=== PATIENT | female | born 1985 | race Caucasian/White ===

== ENCOUNTER 2016-10-02 07:05 | Inpatient (IN) | payer BC ==
[2016-10-02] MEDS ORDERED: Nalbuphine 20 MG/1 ML Amp IVPUSH PRN (07:54)
[2016-10-02] MEDS ORDERED: Sodium Chloride 0.9% 10 ML Syringe FLUSH PRN (07:54)
[2016-10-02] MEDS ORDERED: Oxytocin/Lactated Ringers 10 UNIT/1,000 ML BAG IV SCH ×2 (08:00)
[2016-10-02] MEDS ORDERED: ePHEDrine 50 MG/ML SDV IVPUSH PRN (08:51)
[2016-10-02] MEDS ORDERED: Ondansetron 4 MG/2 ML SDV IVPUSH PRN (08:51)
[2016-10-02] MEDS ORDERED: fentaNYL 100 MCG/2 ML SDV EPIDUR PRN (08:51)
--- NOTE | 2016-10-02 08:59 | PCM.PREANE ---
Preanesthetic Assessment - Anesthesia/Transfusion/Family Hx Anesthesia History: Prior Anesthesia Without Reaction Transfusion History: No Prior Transfusion(s) - Physical Assessment O2 Sat by Pulse Oximetry: 98 Respiratory Rate: 16 Vital Signs: Last Vital Signs Temp 36.5 C 10/02/16 07:54 Pulse 78 10/02/16 07:54 Resp 16 10/02/16 07:54 BP 113/72 10/02/16 07:54 Pulse Ox 98 10/02/16 07:54 Height: 1.75 m Weight: 103.873 kg - Allergies Allergies/Adverse Reactions: Allergies Allergy/AdvReac Type Severity Reaction Status Date / Time No Known Allergies Allergy Verified 10/02/16 07:20 PreAnesthesia Questionnaire - Past Health History Medical/Surgical History: Denies Medical/Surgical History 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: , 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 Endocrine/Metabolic History: Reports: Obesity/BMI 30+ - SUBSTANCE USE Smoking Status *Q: Never Smoker Second Hand Smoke Exposure: No Recreational Drug Use History: No - HOME MEDS Home Medications: Home Meds Acetaminophen [Tylenol] 650 mg PO Q6H PRN #50 tablet 01/03/15 [Rx] Ibuprofen [Motrin] 200 - 800 mg PO Q6H PRN #50 tablet 01/03/15 [Rx] Lanolin [Lansinoh HPA] 1 applic TOP ASDIRECTED PRN #1 crm 01/03/15 [Rx] Vit with Ca/FA/Iron [ Plus Iron] 1 each PO DAILY tablet [Rx] - CURRENT (IN HOUSE) MEDS Current Meds: Current Medications Ephedrine Sulfate (Ephedrine Sulfate) 5 mg IVPUSH ASDIRECTED PRN PRN Reason: Hypotension Fentanyl (Sublimaze) 100 mcg EPIDUR Q3H PRN PRN Reason: Pain Fentanyl/Bupivacaine HCl (Fentanyl/Bupivacaine/Ns 2 Mcg-0.125% 100 Ml) 100 ml EPIDUR ASDIRECTED ESTIVEN Lactated Ringer's (Ringers, Lactated) 1,000 mls @ 100 mls/hr IV ASDIRECTED ESTIVEN Oxytocin/Lactated Ringer's (Pitocin In Lr 10 Units/1,000 Ml) 10 unit in 1,000 mls @ 500 mls/hr IV TITRATE ESTIVEN PRN Reason: Protocol Oxytocin/Lactated Ringer's (Pitocin In Lr 10 Units/1,000 Ml) 10 unit in 1,000 mls @ 12 mls/hr IV TITRATE ESTIVEN; 2 MUNITS/MIN PRN Reason: Protocol Nalbuphine HCl (Nubain) 10 mg IVPUSH Q2H PRN PRN Reason: Pain (moderate 4-6) Ondansetron HCl (Zofran) 4 mg IVPUSH ONETIME PRN PRN Reason: Nausea/Vomiting Sodium Chloride (Saline Flush) 10 ml FLUSH ASDIRECTED PRN PRN Reason: Keep Vein Open Preanesthetic Assessment - ANESTHESIA/TRANSFUSION/FAMILY HX Anesthesia/Transfusion History: No Prior Anesthesia, No Prior Transfusion(s) Family History of Anesthesia Reaction: No Intubation History: Unknown - REVIEW OF SYSTEMS Constitutional: Reports: no symptoms 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: Reports: no symptoms Respiratory: Reports: no symptoms, cough (with runny nose, and clearing up currently.) Cardiovascular: Reports: no symptoms GI: Reports: no symptoms (GERD) Other: Reports: Easy Bruising - PHYSICAL ASSESSMENT HR: 78 O2 Sat by Pulse Oximetry: 98 RR: 16 BP: 113/72 Temp: 36.5 C Vital Signs: Last Vital Signs Temp 36.5 C 10/02/16 07:54 Pulse 78 10/02/16 07:54 Resp 16 10/02/16 07:54 BP 113/72 10/02/16 07:54 Pulse Ox 98 10/02/16 07:54 Height: 1.75 m Weight: 103.873 kg NPO Status Date: 10/02/16 NPO Status Time: 10:00 ASA Class: 2 Mental Status: Alert & Oriented x3 Airway Class: Mallampati = 2 Dentition: Reports: Normal Dentition, [place](s), Caries Thyro-Mental Finger Breadths: 3 Mouth Opening Finger Breadths: 3 ROM/Head Extension: Full Respiratory Status: lungs clear to auscultation bilaterally Cardiovascular Status: regular rate & rhythm, normal S1, S2, no murmur, blood pressure WNL - ALLERGIES Allergies/Adverse Reactions: Allergies Allergy/AdvReac Type Severity Reaction Status Date / Time No Known Allergies Allergy Verified 10/02/16 07:20 - ANESTHESIA PLAN Preop Beta Brian: No Anesthesia Type Planned: Epidural - ACKNOWLEDGEMENTS Pt an Appropriate Candidate for the Planned Anesthesia: Yes Alternatives and Risks of Anesthesia Discussed w Pt/Guardian: Yes Pt/Guardian Understands and Agrees with Anesthesia Plan: Yes
[2016-10-02] MEDS ORDERED: Bupivacaine/fentaNYL/NS 100 ML Bag EPIDUR SCH (09:00)
[2016-10-02] MEDS: Lactated Ringers 1,000 ML IV SCH ×4 (10:51→15:58)
--- NOTE | 2016-10-02 18:55 | PCM.LDHP ---
L&D History of Present Illness - General Date of Service: 10/02/16 Admit Problem/Dx: Patient Status Order with Admit Dx/Problem 10/02/16 07:54 Patient Status [ADT] Routine Patient Status: Refer to Observation Admission Diagnosis/Problem: Reason for Admit: Induction Nurse Unit Type: Labor and Delivery Admitting Physician: Melissa Carrero Attending Physician: Melissa Carrero Medicare 96 Hour Certification Statement: This Patient is Admitted for Inpatient Services and is Medically Appropriate and Meets Medical Necessity for Inpatient Admission. I Reasonably Expect the Patient Will Require Inpatient Services That Span a Period of Time Over 2 Midnights. My Rationale for Medically Necessary Inpatient Care Will Be Found in the Admission History & Physical and Progress Notes. I Reasonably Expect the Patient to be Discharged or Transferred Within 96 Hours After Admission to This [facility] Hospital. Admission Diagnosis/Problem Admission Diagnosis/Problem Source of Information: Patient History Limitations: Reports: No limitations - History of Present Illness Introduction:: Here for induction of labor. PNC with myself without complication. 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 Endocrine/Metabolic History: Reports: Obesity/BMI 30+ Social & Family History - Family History Family Medical History: Noncontributory - Tobacco Use Smoking Status *Q: Never Smoker Second Hand Smoke Exposure: No - Caffeine Use Caffeine Use: Reports: Soda, Tea Caffeine Use Comment: Occasional - Recreational Drug Use Recreational Drug Use: No H&P Review of Systems - Review of Systems: Review Of Systems: See Below General: Reports: no symptoms HEENT: Reports: no symptoms Pulmonary: Reports: No Symptoms Cardiovascular: Reports: no symptoms Gastrointestinal: Reports: No symptoms Genitourinary: Reports: no symptoms Musculoskeletal: Reports: no symptoms Skin: Reports: no symptoms Psychiatric: Reports: no symptoms Neurological: Reports: No Symptoms Hematologic/Lymphatic: Reports: no symptoms Immunologic: Reports: no symptoms L&D Exam - Exam Exam: See Below - Vital Signs Vital Signs: Last Vital Signs Temp 36.5 C 10/02/16 09:02 Pulse 78 10/02/16 09:02 Resp 16 10/02/16 09:02 BP 113/72 10/02/16 09:02 Pulse Ox 98 10/02/16 09:02 Weight: 103.873 kg - OB Specific Contraction Intensity: Mild to Moderate Heart Rate (FHR) Variability: Moderate (6-25 bmp) Presentation: Vertex - Solis Score Solis Score Cervix Position: Midposition Solis Score Consistency: Medium Solis Score Effacement: 51-70% Solis Score Dilation: 1-2 cm Solis Score Infant's Station: -2 Solis Score Total: 6 - Exam General: alert, oriented HEENT: Conjunctiva clear Neck: supple Lungs: Clear to auscultation Cardiovascular: regular rate, regular rhythm Abdomen: normal bowel sounds Back Exam: normal inspection, full range of motion Extremities: normal inspection Skin: warm, dry, intact Neurological: cranial nerves intact, reflexes equal bilateral Psychiatric: alert, normal affect, normal mood - Patient Data Lab Results last 24 hrs: Laboratory Results - last 24 hr 10/02/16 Range/Units 08:38 WBC 12.82 H (3.98-10.04) K/mm3 RBC 4.09 (3.98-5.22) M/mm3 Hgb 12.2 (11.2-15.7) gm/L Hct 35.7 (34.1-44.9) % MCV 87.3 (79.4-94.8) fl MCH 29.8 (25.6-32.2) pg MCHC 34.2 (32.2-35.5) g/dl RDW Std Deviation 41.8 (36.4-46.3) fL Plt Count 246 (182-369) K/mm3 MPV 9.7 (9.4-12.3) fl Neut % (Auto) 71.1 (34.0-71.1) % Lymph % (Auto) 19.0 L (19.3-51.7) % [place] % (Auto) 7.6 (4.7-12.5) % Eos % (Auto) 1.7 (0.7-5.8) Baso % (Auto) 0.2 (0.1-1.2) % Neut # 9.12 H (1.56-6.13) K/mm3 Lymph # 2.44 (1.18-3.74) K/mm3 [place] # 0.97 H (0.24-0.36) K/mm3 Eos # 0.22 (0.04-0.36) K/mm3 Baso # 0.02 (0.01-0.08) K/mm3 Result Diagrams: 10/02/16 08:38 Problem List Initiated/Reviewed/Updated: Yes Orders Last 24hrs: Active Orders 24 hr Category Date Time Status Patient Status [ADT] Routine ADT 10/02/16 07:54 Active Activity as Tolerated [RC] PFP Care 10/02/16 07:54 Active Communication Order [RC] ASDIRECTED Care 10/02/16 07:54 Active Heart Tones [RC] ASDIRECTED Care 10/02/16 07:55 Active Notify Provider [RC] ASDIRECTED Care 10/02/16 08:49 Active Notify Provider [RC] PFP Care 10/02/16 07:54 Active Notify Provider [RC] PRN Care 10/02/16 07:54 Active Oxygen Therapy [RC] ASDIRECTED Care 10/02/16 08:49 Active Peripheral IV Care [RC] . DIRECTED Care 10/02/16 07:55 Active Pulse Oximetry [RC] ASDIRECTED Care 10/02/16 08:49 Active Vital Signs [RC] PER UNIT ROUTINE Care 10/02/16 07:54 Active Regular Diet [DIET] Diet 10/02/16 Dinner Active Bupivacaine/fentaNYL/NS [fentaNYL/Bupivacaine/NS 2 MCG- Med 10/02/16 09:00 Active 0.125% 100 ML] 100 ml EPIDUR ASDIRECTED Lactated Ringers [Ringers, Lactated] 1,000 ml Med 10/02/16 08:00 Active IV ASDIRECTED Nalbuphine [Nubain] Med 10/02/16 07:54 Active 10 mg IVPUSH Q2H PRN Ondansetron [Zofran] Med 10/02/16 08:51 Active 4 mg IVPUSH ONETIME PRN Oxytocin/Lactated Ringers [Pitocin in LR 10 Units/1,000 Med 10/02/16 08:00 Active ML] 10 unit in 1,000 ml IV TITRATE Oxytocin/Lactated Ringers [Pitocin in LR 10 Units/1,000 Med 10/02/16 08:00 Active ML] 10 unit in 1,000 ml IV TITRATE Sodium Chloride 0.9% [Saline Flush] Med 10/02/16 07:54 Active 10 ml FLUSH ASDIRECTED PRN ePHEDrine [ePHEDrine Sulfate] Med 10/02/16 08:51 Active 5 mg IVPUSH ASDIRECTED PRN fentaNYL [Sublimaze] Med 10/02/16 08:51 Active 100 mcg EPIDUR Q3H PRN Electronic Heart Tones Ext w TOCO [WOMSER] Oth 10/02/16 07:54 Ordered Routine Electronic Heart Tones Internal [WOMSER] Per Unit Oth 10/02/16 07:54 Ordered Routine Peripheral IV Insertion Adult [OM.PC] Routine Oth 10/02/16 07:54 Ordered Resuscitation Status Routine Resus Stat 10/02/16 07:54 Ordered Medication Orders Ephedrine Sulfate (Ephedrine Sulfate) 5 mg IVPUSH ASDIRECTED PRN PRN Reason: Hypotension Fentanyl (Sublimaze) 100 mcg EPIDUR Q3H PRN PRN Reason: Pain Last Admin: 10/02/16 13:42 Dose: 100 mcg Fentanyl/Bupivacaine HCl (Fentanyl/Bupivacaine/Ns 2 Mcg-0.125% 100 Ml) 100 ml EPIDUR ASDIRECTED [facility] Last Admin: 10/02/16 13:42 Dose: 100 ml Lactated Ringer's (Ringers, Lactated) 1,000 mls @ 100 mls/hr IV ASDIRECTED [facility] Last Admin: 10/02/16 15:58 Dose: 100 mls/hr Infusion: 10/02/16 15:58 Dose: 100 mls/hr Admin: 10/02/16 15:02 Dose: 100 mls/hr Infusion: 10/02/16 15:02 Dose: 100 mls/hr Admin: 10/02/16 13:45 Dose: 100 mls/hr Infusion: 10/02/16 13:45 Dose: 100 mls/hr Admin: 10/02/16 10:51 Dose: 100 mls/hr Oxytocin/Lactated Ringer's (Pitocin In Lr 10 Units/1,000 Ml) 10 unit in 1,000 mls @ 500 mls/hr IV TITRATE ESTIVEN PRN Reason: Protocol Oxytocin/Lactated Ringer's (Pitocin In Lr 10 Units/1,000 Ml) 10 unit in 1,000 mls @ 12 mls/hr IV TITRATE ESTIVEN; 2 MUNITS/MIN PRN Reason: Protocol Last Titration: 10/02/16 18:08 Dose: 4 munits/min, 24 mls/hr Titration: 10/02/16 17:52 Dose: 5 munits/min, 30 mls/hr Titration: 10/02/16 15:53 Dose: 4 munits/min, 24 mls/hr Titration: 10/02/16 13:29 Dose: 6 munits/min, 36 mls/hr Titration: 10/02/16 12:31 Dose: 8 munits/min, 48 mls/hr Titration: 10/02/16 12:00 Dose: 6 munits/min, 36 mls/hr Titration: 10/02/16 11:25 Dose: 4 munits/min, 24 mls/hr Admin: 10/02/16 10:51 Dose: 2 munits/min, 12 mls/hr Nalbuphine HCl (Nubain) 10 mg IVPUSH Q2H PRN PRN Reason: Pain (moderate 4-6) Ondansetron HCl (Zofran) 4 mg IVPUSH ONETIME PRN PRN Reason: Nausea/Vomiting Sodium Chloride (Saline Flush) 10 ml FLUSH ASDIRECTED PRN PRN Reason: Keep Vein Open Assessment/Plan Comment:: Term induction. Doing well. Pitocin and AROM when possible.
--- NOTE | 2016-10-02 18:57 | PCM.PNLD ---
Labor Progress Note - VS & Meds Vital Signs: Last Vital Signs Temp 36.5 C 10/02/16 09:02 Pulse 78 10/02/16 09:02 Resp 16 10/02/16 09:02 BP 113/72 10/02/16 09:02 Pulse Ox 98 10/02/16 09:02 Active Medications: Current Medications Ephedrine Sulfate (Ephedrine Sulfate) 5 mg IVPUSH ASDIRECTED PRN PRN Reason: Hypotension Fentanyl (Sublimaze) 100 mcg EPIDUR Q3H PRN PRN Reason: Pain Last Admin: 10/02/16 13:42 Dose: 100 mcg Fentanyl/Bupivacaine HCl (Fentanyl/Bupivacaine/Ns 2 Mcg-0.125% 100 Ml) 100 ml EPIDUR ASDIRECTED ESTIVEN Last Admin: 10/02/16 13:42 Dose: 100 ml Lactated Ringer's (Ringers, Lactated) 1,000 mls @ 100 mls/hr IV ASDIRECTED ESTIVEN Last Admin: 10/02/16 15:58 Dose: 100 mls/hr Oxytocin/Lactated Ringer's (Pitocin In Lr 10 Units/1,000 Ml) 10 unit in 1,000 mls @ 500 mls/hr IV TITRATE ESTIVEN PRN Reason: Protocol Oxytocin/Lactated Ringer's (Pitocin In Lr 10 Units/1,000 Ml) 10 unit in 1,000 mls @ 12 mls/hr IV TITRATE ESTIVEN; 2 MUNITS/MIN PRN Reason: Protocol Last Titration: 10/02/16 18:08 Dose: 4 munits/min, 24 mls/hr Nalbuphine HCl (Nubain) 10 mg IVPUSH Q2H PRN PRN Reason: Pain (moderate 4-6) Ondansetron HCl (Zofran) 4 mg IVPUSH ONETIME PRN PRN Reason: Nausea/Vomiting Sodium Chloride (Saline Flush) 10 ml FLUSH ASDIRECTED PRN PRN Reason: Keep Vein Open - Uterine Contractions Contraction Intensity: Mild to Moderate - Monitoring Heart Rate (FHR) Variability: Moderate (6-25 bmp) Strip Review: Category I - Vaginal Exam Station: -2 Cervical Position: Midposition - Labor Progress (Free Text) Labor Progress: AROM clear fluid.
[2016-10-02] MEDS ORDERED: Ibuprofen 600 MG Tab PO PRN (19:17)
[2016-10-02] MEDS ORDERED: Bupivacaine 0.25% 10 ML SDV ONE (22:22)
[2016-10-03] MEDS ORDERED: Ibuprofen 600 MG Tab PO PRN (06:45)
--- NOTE | 2016-10-03 06:46 | PCM.DCSUM1 ---
Discharge Summary - Hospital Course Brief History: Admitted for induction of labor, - Discharge Data Discharge Date: 10/03/16 Discharge Disposition: Home, Self-Care 01 Condition: Good - Patient Instructions Diet: Usual Diet as Tolerated Activity: No Strenuous Activities Driving: May Drive Today Showering/Bathing: May Shower Notify Provider of: Fever, Increased Pain, Swelling and Redness, Drainage, Nausea and/or Vomiting - Discharge Plan Home Medications: Home Meds Vit with Ca/FA/Iron [ Plus Iron] 1 each PO DAILY tablet [Rx] - Discharge Summary/Plan Comment DC Time >30 min.: No - General Info Date of Service: 10/03/16 Functional Status: Reports: pain controlled - Review of Systems General: Reports: No Symptoms HEENT: Reports: no symptoms Pulmonary: Reports: no symptoms Cardiovascular: Reports: No Symptoms Gastrointestinal: Reports: No symptoms Genitourinary: Reports: no symptoms Musculoskeletal: Reports: no symptoms Skin: Reports: no symptoms Neurological: Reports: No Symptoms Psychiatric: Reports: no symptoms - Patient Data Vitals - Most Recent: Last Vital Signs Temp 37.2 C 10/03/16 05:01 Pulse 60 10/03/16 05:01 Resp 15 10/03/16 05:01 BP 106/52 L 10/03/16 05:01 Pulse Ox 99 10/03/16 05:01 Weight - Most Recent: 103.873 kg I&O - Last 24 hours: Intake & Output 10/02/16 10/02/16 10/03/16 14:59 22:59 06:59 Intake Total 5380 Balance 5380 Lab Results - Last 24 hrs: Laboratory Results - last 24 hr 10/02/16 Range/Units 08:38 WBC 12.82 H (3.98-10.04) K/mm3 RBC 4.09 (3.98-5.22) M/mm3 Hgb 12.2 (11.2-15.7) gm/L Hct 35.7 (34.1-44.9) % MCV 87.3 (79.4-94.8) fl MCH 29.8 (25.6-32.2) pg MCHC 34.2 (32.2-35.5) g/dl RDW Std Deviation 41.8 (36.4-46.3) fL Plt Count 246 (182-369) K/mm3 MPV 9.7 (9.4-12.3) fl Neut % (Auto) 71.1 (34.0-71.1) % Lymph % (Auto) 19.0 L (19.3-51.7) % [place] % (Auto) 7.6 (4.7-12.5) % Eos % (Auto) 1.7 (0.7-5.8) Baso % (Auto) 0.2 (0.1-1.2) % Neut # 9.12 H (1.56-6.13) K/mm3 Lymph # 2.44 (1.18-3.74) K/mm3 [place] # 0.97 H (0.24-0.36) K/mm3 Eos # 0.22 (0.04-0.36) K/mm3 Baso # 0.02 (0.01-0.08) K/mm3 Med Orders - Current: Current Medications Ephedrine Sulfate (Ephedrine Sulfate) 5 mg IVPUSH ASDIRECTED PRN PRN Reason: Hypotension Fentanyl (Sublimaze) 100 mcg EPIDUR Q3H PRN PRN Reason: Pain Last Admin: 10/02/16 13:42 Dose: 100 mcg Fentanyl/Bupivacaine HCl (Fentanyl/Bupivacaine/Ns 2 Mcg-0.125% 100 Ml) 100 ml EPIDUR ASDIRECTED ESTIVEN Last Admin: 10/02/16 13:42 Dose: 100 ml Lactated Ringer's (Ringers, Lactated) 1,000 mls @ 100 mls/hr IV ASDIRECTED ESTIVEN Last Admin: 10/02/16 15:58 Dose: 100 mls/hr Oxytocin/Lactated Ringer's (Pitocin In Lr 10 Units/1,000 Ml) 10 unit in 1,000 mls @ 500 mls/hr IV TITRATE ESTIVEN PRN Reason: Protocol Oxytocin/Lactated Ringer's (Pitocin In Lr 10 Units/1,000 Ml) 10 unit in 1,000 mls @ 12 mls/hr IV TITRATE ESTIVEN; 2 MUNITS/MIN PRN Reason: Protocol Last Titration: 10/02/16 18:30 Dose: 0 munits/min, 0 mls/hr Ibuprofen (Motrin) 600 mg PO Q6H PRN PRN Reason: Pain Last Admin: 10/03/16 02:28 Dose: 600 mg Nalbuphine HCl (Nubain) 10 mg IVPUSH Q2H PRN PRN Reason: Pain (moderate 4-6) Ondansetron HCl (Zofran) 4 mg IVPUSH ONETIME PRN PRN Reason: Nausea/Vomiting Sodium Chloride (Saline Flush) 10 ml FLUSH ASDIRECTED PRN PRN Reason: Keep Vein Open - Exam General: Reports: alert, oriented HEENT: Reports: Pupils equal, Pupils reactive, EOMI, Mucous membr. moist/pink Neck: Reports: supple Lungs: Reports: Clear to auscultation, Normal respiratory effort Cardiovascular: Reports: Regular Rate, Regular Rhythm Abdomen: Reports: bowel sounds present, soft, no tenderness, no distension (Female) Exam: Normal external exam, Normal speculum exam, Normal bimanual exam Rectal (Female) Exam: Normal Exam, Normal rectal tone Back Exam: Reports: normal inspection, full range of motion Extremities: Reports: no edema, normal pulses Skin: Reports: warm, dry, intact Wound/Incisions: Reports: healing well Neurological: Reports: no new focal deficit Psy/Mental Status: Reports: alert, normal affect, normal mood *Q Meaningful Use (DIS) - VTE *Q VTE Criteria *Q: - Stroke *Q Stroke Criteria *Q: - AMI *Q AMI Criteria *Q:
--- NOTE | 2016-10-03 09:11 | PCM48HPAN ---
Post Anesthesia Note - EVALUATION WITHIN 48HRS OF ANESTHETIC Vital Signs in Normal Range: Yes Patient Participated in Evaluation: Yes Respiratory Function Stable: Yes Airway Patent: Yes Cardiovascular Function Stable: Yes Hydration Status Stable: Yes Pain Control Satisfactory: Yes Nausea and Vomiting Control Satisfactory: Yes Mental Status Recovered: Yes - COMMENTS/OBSERVATIONS Free Text/Narrative:: Pt and baby are doing well. Epidural worked well and is completely resolved. minor soreness at epidural site. no fever, chills, nausea,vomiting, or headache. ambulating, using restroom, and taking p.o. without problem.
[2016-10-03 10:36] VITALS: BP 112/66
== END 2016-10-03 18:45 | disposition home or self-care (01) | DRG 560 ==
LOC: JD.OB 07:05 → OBSVTOIN 18:35
PROVIDERS: ADMIT Obstetrics & Gynecology; ATTEND Obstetrics & Gynecology
PROC: 10E0XZZ Delivery of Products of Conception, External Approach (ICD-10-PCS; principal; 2016-10-02)
PROC: 3E033VJ Introduction of Other Hormone into Peripheral Vein, Percutaneous Approach (ICD-10-PCS; 2016-10-02)
PROC: 10907ZC Drainage of Amniotic Fluid, Therapeutic from Products of Conception, Via Natural or Artificial Opening (ICD-10-PCS; 2016-10-02)
PROC: 00HU33Z Insertion of Infusion Device into Spinal Canal, Percutaneous Approach (ICD-10-PCS; 2016-10-02)
PROC: 3E0R3CZ (ICD-10-PCS; 2016-10-02)
DX: O99.214 Obesity complicating childbirth (principal); E66.9 Obesity, unspecified; Z68.30 Body mass index [BMI] 30.0-30.9, adult; O69.81X0 Labor and delivery complicated by cord around neck, without compression, not applicable or unspecified; Z3A.40 40 weeks gestation of pregnancy; Z37.0 Single live birth
CPT/HCPCS: 36415; 85025; A9270-GY; J2590; J3010; J7120

== ENCOUNTER 2016-10-24 13:44 | Emergency (ER) | payer BC ==
[2016-10-24 14:01] VITALS: BP 129/76
--- NOTE | 2016-10-24 14:29 | EDM.PDOC ---
ED HPI GENERAL MEDICAL PROBLEM - General Chief Complaint: General Stated Complaint: RIB PAIN Time Seen by Provider: 10/24/16 14:19 Source of Information: Reports: Patient History Limitations: Reports: No limitations - History of Present Illness INITIAL COMMENTS - FREE TEXT/NARRATIVE: Patient presents for evaluation treatment of right-sided chest pain. Patient reports the chest pain began around 1300 today. She states it is located under her right breast. She states she tought the pain was do to her clothing or bra. she stripped off her clothing but the pain did not improve. She states that she did feel short of breath and felt she had labored breathing with the pain. She states it is worse with sitting. She has been having difficulty finding a comfortable position. She reports that the pain is constant and rates it as a 6/ 10. She reports pain with any movement to her ribs in breathing. States it's worse with laying on her back. Patient reports associated symptoms of nausea and chills. She denies any fevers, cough, vomiting, diaphoresis. Has not taken any medication for the pain. Patient gave to a healthy baby girl on 10-02-16. This was a spontaneous vaginal delivery. She has been breast-feeding. She's currently only on a vitamin. She is not on control. She denies any recent travel. Patient reports that she has family history of hypertension and heart attacks on her leon;s side. No family history of blood clotting disorders that she is aware of. 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 Denies: fever Respiratory: Reports: Shortness of Breath, Pleuritic Chest Pain Cardiovascular: Reports: Chest pain (right ) GI/Abdominal: Reports: Nausea. Denies: Abdominal pain, Vomiting ED EXAM, GENERAL - Physical Exam Exam: See Below Exam Limited By: No limitations General Appearance: alert, WD/WN, mild distress, obese Ears: normal external exam Nose: normal inspection Throat/Mouth: Normal inspection, Normal oropharynx, Normal voice, No airway compromise Respiratory/Chest: no respiratory distress, lungs clear, normal breath sounds Cardiovascular: normal peripheral pulses, regular rate, rhythm, no murmur GI/Abdominal: soft, non tender Neurological: alert, oriented, normal cognition Psychiatric: normal affect, normal mood Skin Exam: Warm, Dry, Normal color EKG INTERPRETATION EKG Date: 10/24/16 Time: 14:30 Rhythm: NSR Rate (beats/min): 61 [place]: normal P-wave: present QRS: normal ST-T: normal QT: normal Comparison: NA - no prior EKG EKG Interpretation Comments: NSR at 61 bpm. Normal ECG. Reviewed by myself and Dr. Zuniga. Course - Vital Signs Last Recorded V/S: Last Vital Signs Temp 36.5 C 10/24/16 13:52 Pulse 60 10/24/16 13:52 Resp 28 H 10/24/16 13:52 BP 129/76 10/24/16 13:52 Pulse Ox 100 10/24/16 13:52 - Orders/Labs/Meds Orders: Active Orders 24 hr Category Date Time Status Cardiac Monitoring [RC] . DIRECTED Care 10/24/16 14:25 Active EKG Documentation Completion [RC] STAT Care 10/24/16 14:25 Active Peripheral IV Care [RC] . DIRECTED Care 10/24/16 14:28 Active Chest 2V [CR] Stat Exams 10/24/16 14:25 Taken Chest PE [Ang Chest] [CT] Stat Exams 10/24/16 15:25 Taken Peripheral IV Insertion Adult [OM.PC] Routine Oth 10/24/16 14:28 Ordered Labs: Laboratory Tests 10/24/16 10/24/16 10/24/16 Range/Units 14:44 14:44 14:44 WBC 8.63 (3.98-10.04) K/mm3 RBC 4.88 (3.98-5.22) M/mm3 Hgb 14.3 (11.2-15.7) gm/L Hct 41.3 (34.1-44.9) % MCV 84.6 (79.4-94.8) fl MCH 29.3 (25.6-32.2) pg MCHC 34.6 (32.2-35.5) g/dl RDW Std Deviation 37.2 (36.4-46.3) fL Plt Count 329 (182-369) K/mm3 MPV 9.5 (9.4-12.3) fl Neut % (Auto) 68.6 (34.0-71.1) % Lymph % (Auto) 22.7 (19.3-51.7) % [place] % (Auto) 6.6 (4.7-12.5) % Eos % (Auto) 2.0 (0.7-5.8) Baso % (Auto) 0.1 (0.1-1.2) % Neut # (Auto) 5.92 (1.56-6.13) K/mm3 Lymph # (Auto) 1.96 (1.18-3.74) K/mm3 [place] # (Auto) 0.57 H (0.24-0.36) K/mm3 Eos # (Auto) 0.17 (0.04-0.36) K/mm3 Baso # (Auto) 0.01 (0.01-0.08) K/mm3 D-Dimer, Quantitative 1.20 H (0.19-0.59) mg/L Sodium 142 (136-145) mEq/L Potassium 3.3 L (3.5-5.1) mEq/L Chloride 106 (98-107) mEq/L Carbon Dioxide 25 (21-32) mEq/L Anion Gap 14.3 (5-15) BUN 11 (7-18) mg/dL Creatinine 0.9 (0.55-1.02) mg/dL Est Cr Clr Drug Dosing 94.65 mL/min Estimated GFR (MDRD) > 60 (>60) mL/min BUN/Creatinine Ratio 12.2 L (14-18) Glucose 106 (74-106) mg/dL Calcium 9.0 (8.5-10.1) mg/dL Total Bilirubin 0.9 (0.2-1.0) mg/dL AST 152 H (15-37) U/L ALT 119 H (14-59) U/L Alkaline Phosphatase 95 (46-116) U/L Troponin I < 0.017 (0.00-0.056) ng/mL C-Reactive Protein < 0.2 (<1.0) mg/dL Total Protein 6.8 (6.4-8.2) g/dl Albumin 3.6 (3.4-5.0) g/dl Globulin 3.2 gm/dL Albumin/Globulin Ratio 1.1 (1-2) Meds: Medications Discontinued Medications Generic Name Dose Route Start Last Admin Trade Name Freq PRN Reason Stop Dose Admin Sodium Chloride 100 mls @ 60 mls/hr 10/24/16 15:45 10/24/16 15:45 Normal Saline IV 60 mls/hr ASDIRECTED ESTIVEN Administration Iopamidol 50 ml 10/24/16 15:31 10/24/16 15:45 Isovue-370 (76%) IVPUSH 10/24/16 15:32 50 ml ONETIME ONE Administration Iopamidol 100 ml 10/24/16 15:31 10/24/16 15:45 Isovue-370 (76%) IVPUSH 10/24/16 15:32 100 ml ONETIME ONE Administration Ketorolac Tromethamine 30 mg 10/24/16 16:46 10/24/16 16:50 Toradol IVPUSH 10/24/16 16:47 30 mg ONETIME ONE Administration Sodium Chloride 10 ml 10/24/16 14:28 10/24/16 16:50 Saline Flush FLUSH 10 ml ASDIRECTED PRN Administration Keep Vein Open Sodium Chloride 10 ml 10/24/16 15:31 10/24/16 15:45 Saline Flush FLUSH 10/24/16 15:32 10 ml ONETIME ONE Administration - Radiology Interpretation Free Text/Narrative:: chest 2 view shows no acute intrathroacic process. CT PE study impression per Vrad: No CT sign fo acute PE. CT Results Date: 10/24/16 - Re-Assessments/Exams Free Text/Narrative Re-Assessment/Exam: 10/24/16 14:40 Offered medication for pain and nausea, patient declnied. 04/12/17 15:29 WBC is 8.63, hgb is 14.3 and pls ate 329 d dimer elevated at 1.20. Ct PE study ordered. trop normal at <0.017 Offered medication for pain, patient declines. 10/24/16 17:11 Remainder of labs include: sodium os 142, potassium of 3.3 and chloride of 106. Creatinine is 0.9. Glucose is 106 AST is 152, ALT is 119 , t. bili is0.9 CRP is <0.2 Reviewed the labs, ekg and ct with the patient. Likely etiology is musculoskeletal pain, could possibly be predromal shingles or gallbladder. Patient reports she had shahid and an egg salad sandwich for lunch but states she had the same lunch yesterday without any problems. I will have her follow-up in clinic for further evaluation. Discharge instructions as documented. Departure - Departure Time of Disposition: 17:20 Disposition: Home, Self-Care 01 Condition: fair Clinical Impression: Chest wall pain Instructions: Chest Wall Pain, [id number] Referrals: PCP,Chris [Primary Care Provider] - Suzi Pierre PA [Physician Regenerator Operator] - Forms: ED Department Discharge Additional Instructions: OTC ibuprofen or tylenol as needed for pain relief. Avoid fatty foods. Follow-up with family medicine the end or this week or early next week. Recommend Dr. Velasquez or Suzi Pierre, call [phone] to schedule with one of them. She is located at the [facility]. Please return to the ER should your symptoms change or worsen. - My Orders Last 24 Hours: My Active Orders 10/24/16 14:25 Cardiac Monitoring [RC] . DIRECTED EKG Documentation Completion [RC] STAT Chest 2V [CR] Stat 10/24/16 14:28 Peripheral IV Care [RC] . DIRECTED Peripheral IV Insertion Adult [OM.PC] Routine 10/24/16 15:25 Chest PE [Ang Chest] [CT] Stat - Assessment/Plan Last 24 Hours: My Active Orders 10/24/16 14:25 Cardiac Monitoring [RC] . DIRECTED EKG Documentation Completion [RC] STAT Chest 2V [CR] Stat 10/24/16 14:28 Peripheral IV Care [RC] . DIRECTED Peripheral IV Insertion Adult [OM.PC] Routine 10/24/16 15:25 Chest PE [Ang Chest] [CT] Stat
[2016-10-24] MEDS: Sodium Chloride 0.9% 10 ML Syringe FLUSH PRN ×2 (15:28→16:50)
[2016-10-24] MEDS ORDERED: Sodium Chloride 0.9% 10 ML Syringe FLUSH ONE (15:31)
[2016-10-24] MEDS ORDERED: Iopamidol 755 Mg/ML 100 ML Bottle IVPUSH ONE (15:31)
[2016-10-24] MEDS ORDERED: Iopamidol 755 MG/ML 50 ML Bottle IVPUSH ONE (15:31)
[2016-10-24] MEDS ORDERED: Sodium Chloride 0.9% 100 ML IV SCH (15:45)
[2016-10-24] MEDS ORDERED: Ketorolac 30 MG/ML SDV IVPUSH ONE (16:46)
--- NOTE | 2016-10-25 11:45 | CT ---
CT chest Technique: Multiple axial sections were obtained from above the lung apices inferiorly through the lung bases. Intravenous contrast was utilized. Study has been performed as a pulmonary angiogram protocol. Findings: Pulmonary arteries are well-opacified. No filling defects are seen to indicate pulmonary embolism. Mediastinum and hilar region show no adenopathy or mass. No pericardial thickening is seen. Small portion of the visualized upper abdominal structures are within normal limits. Lungs are clear. No pleural effusions or pneumothorax is seen. Bone window settings were reviewed which appear within normal limits for the patient's age. Impression: 1. No findings of pulmonary embolism. 2. Other portions of the CT study of the chest appears unremarkable. Agree with preliminary report issued by [facility] (preliminary report dictated on 10/24/16, 5:38 PM Central Time) Diagnostic code #1
--- NOTE | 2016-10-25 11:46 | CR ---
Chest: Two views of the chest were obtained. Comparison: No previous chest x-ray. Heart size and mediastinum are normal. Lungs are clear. No pneumothorax is seen. Bony structures are grossly intact. Impression: 1. No acute intrathoracic process is seen. Diagnostic code #1
== END 2016-10-24 17:40 | disposition home or self-care (01) ==
LOC: JD.ED 13:44
DX: R07.89 Other chest pain (principal); E66.9 Obesity, unspecified; Z68.30 Body mass index [BMI] 30.0-30.9, adult
CPT/HCPCS: 36415; 71020; 71275; 80053; 84484; 85025; 85379; 86140; 93005; 96374; 99284; J1885; J7030; J7050; Q9967

== ENCOUNTER 2017-11-21 17:27 | Emergency (ER) | payer BC ==
[2017-11-21 17:39] VITALS: BP 121/73
--- NOTE | 2017-11-21 18:36 | EDM.PDOC ---
ED HPI GENERAL MEDICAL PROBLEM - General Chief Complaint: Lower Extremity Injury/Pain Stated Complaint: PAIN IN RIGHT LEG Time Seen by Provider: 11/21/17 18:08 Source of Information: Reports: Patient History Limitations: Reports: No Limitations - History of Present Illness INITIAL COMMENTS - FREE TEXT/NARRATIVE: The patient is a 32-year-old female , at 11 weeks, presents with right lower extremity pain. She states that she has a few issues going on with the leg. First of all, she has a rash above the right knee that started a few days ago. It is red and a bit burning in nature. It started a few days ago. She hasn' t had any vesicular or crusted lesions. She states that it does feel somewhat similar to when she's had zoster infections before. She states that she's had somewhat frequent zoster infections during times of stress or . Additionally, she has an area on her right lateral calf where there is some pain and swelling and redness. She states that she first noticed it today. States that it feels warm. No provoking factor. No history of similar symptoms previously. She doesn't have any actual calf pain or leg swelling. Additionally , she has an area of her right ankle that feels sore. States that this is worse with movement. States that she notices it when she takes the first few steps and the pain goes away. The pain is located in the right lower lateral ankle area. She does not recall an injury. She is somewhat active taking care of 3 kids at home. Pain is been present for about 3 days. No additional joint pain. She hasn't noticed any redness or swelling to the area. Pain is mild to moderate , and does resolve with rest. No fever or recent illness. No cough or shortness of breath. No abdominal pain or vomiting. 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 Endocrine/Metabolic History: Reports: Obesity/BMI 30+ Social & Family History - Family History Family Medical History: Noncontributory - Tobacco Use Smoking Status *Q: Never Smoker - Caffeine Use Caffeine Use: Reports: Coffee Caffeine Use Comment: Occasional - Recreational Drug Use Recreational Drug Use: No Review of Systems - Review of Systems Review Of Systems: See Below Constitutional: Denies: Fever Eyes: Reports: No Symptoms Ears: Reports: No Symptoms Nose: Reports: No Symptoms Mouth/Throat: Reports: No Symptoms Respiratory: Denies: Shortness of Breath, Cough Cardiovascular: Denies: Chest Pain GI/Abdominal: Denies: Abdominal Pain Genitourinary: Reports: No Symptoms Musculoskeletal: Reports: Leg Pain, Joint Pain Skin: Reports: Rash, Erythema Neurological: Reports: No Symptoms Psychiatric: Reports: No Symptoms ED EXAM, GENERAL - Physical Exam Exam: See Below Exam Limited By: No Limitations General Appearance: Alert, WD/WN, No Apparent Distress Eye Exam: Bilateral Eye: Normal Inspection Ears: Normal External Exam Nose: Normal Inspection Throat/Mouth: Normal Inspection, Normal Oropharynx, Normal Voice, No Airway Compromise Head: Atraumatic, Normocephalic Neck: Normal Inspection, Supple Respiratory/Chest: No Respiratory Distress, Lungs Clear, Normal Breath Sounds, No Accessory Muscle Use Cardiovascular: Normal Peripheral Pulses, Regular Rate, Rhythm, No Edema, No Murmur GI/Abdominal: Soft, Non-Tender, No Distention Extremities: Other (Right lower extremity: Small patches erythema localized above the right knee, size is approximately 3 x 3 cm, slightly warm, one isolated crusted lesion, no vesicular lesions, no discharge. No knee swelling or tenderness, full range of motion in the knee. Right lateral calf has a larger patch of erythema, approximately 6 cm x 3 cm with an elliptical shape, confluent, hot to the touch, blanching, no lesions or exudate, extensive varicose veins on the right lower extremity, there is an underlying varicose vein that is mildly tender. No palpable cord. No swelling of the right lower extremity, no calf tenderness right ankle is normal in appearance, no swelling, no effusion, no bruising or erythema, tenderness is localized to the distal aspect of the right malleolus, full range of motion, no foot abnormality.) Neurological: Alert, Oriented, Normal Cognition, No Motor/Sensory Deficits Psychiatric: Normal Affect, Normal Mood Skin Exam: Warm, Dry, Intact. No: Pallor Course - Vital Signs Last Recorded V/S: Last Vital Signs Temp 36.3 C 11/21/17 17:35 Pulse 78 11/21/17 17:35 Resp 16 11/21/17 17:35 BP 121/73 11/21/17 17:35 Pulse Ox 100 11/21/17 17:35 - Re-Assessments/Exams Free Text/Narrative Re-Assessment/Exam: 11/22/17 09:13 Patient has 2 patches of erythema on the right lower extremity. The proximal patch above the knee looks like it could be consistent with a zoster infection though it only has one crusted lesion at this time. Patient has had this area of erythema for several days, I don't think that there is value in treating this with acyclovir at this time given duration of symptoms. Secondly, she has new patch of erythema on the right lateral leg that is confluent and hot to the touch and appears consistent with cellulitis. She does have a varicose pain underneath which is tender, superficial phlebitis as possible, though it is not clear if the tenderness of this pain is due to overlying skin infection or if the vein itself is tender. Regardless, I do think it would be prudent to treat with a course of oral antibiotics. Also discussed local care with heat and elevation. Patient also has transient ankle pain when she starts to bear weight that resolves with movement and also resolves with rest. The ankle appears uninjured. There is no effusion or erythema. Suggested that she treat this conservatively with rest, ice, elevation, and reevaluation as needed. Departure - Departure Time of Disposition: 18:32 Disposition: Home, Self-Care 01 Clinical Impression: Superficial thrombophlebitis during in first trimester Cellulitis Qualifiers: Site of cellulitis: extremity Site of cellulitis of extremity: lower extremity Laterality: right Qualified Code(s): L03.115 - Cellulitis of right lower limb Ankle pain, right Qualifiers: Chronicity: acute Qualified Code(s): M25.571 - Pain in right ankle and joints of right foot - Discharge Information Prescriptions: Cephalexin 500 mg PO QID #28 capsule Instructions: Cellulitis, Adult Referrals: PCP,None [Primary Care Provider] - Forms: ED Department Discharge Additional Instructions: 1. Keep leg elevated when possible 2. Use ice on ankle intermittently 3. Use heat on area of redness and swollen vein (thrombophlebitis) 4. I think you may have an early skin infection vs. impending shingles. Take antibiotic as prescribed. 5. Return to the ED for a recheck if you have worsening redness, swelling, pain , fever, or other concerning symptoms 6. Otherwise follow up with Dr. Carrero as scheduled 7. Take tylenol as needed for pain.
== END 2017-11-21 18:50 | disposition home or self-care (01) ==
LOC: JD.ED 17:27
DX: O22.21 Superficial thrombophlebitis in pregnancy, first trimester (principal); O99.711 Diseases of the skin and subcutaneous tissue complicating pregnancy, first trimester; L03.115 Cellulitis of right lower limb; Z3A.11 11 weeks gestation of pregnancy
CPT/HCPCS: 99283